=== PATIENT | female | born 1965 | race Caucasian/White ===

== ENCOUNTER 2020-03-24 07:37 | Emergency (ER) | payer BC ==
[~2020-03-24] VITALS: Ht 160 cm; Wt 68.0 kg
[~2020-03-24 07:37] MED LIST: FERRO-TIME325 MG PO; LO-DOSE ASPIRIN81 M1 PO; PRINIVIL5 MG PO
[2020-03-24 08:24] LABS: ABSOLUTE NEUTROPHILS 3.9 thou/uL (1.4-8.2); BASOPHILS 0.5 % (0.0-2.0); EOSINOPHILS 0.3 % (0.0-3.0); HEMATOCRIT 41.9 % (37.0-47.0); HEMOGLOBIN 13.8 gm/dL (12.0-15.0); MCV 87.8 fL (80.0-100.0); PLATELET COUNT 270 thou/uL (150-400); POLYS 60.2 % (36.0-66.0); RBC 4.78 mil/uL (4.20-5.00); RDW 13.5 % (10.5-14.5); WBC 6.5 thou/uL (4.0-11.0)
[2020-03-24 08:26] LABS: ANION GAP 12 mmol/L (7-16); BUN 10 mg/dL (7-18); CALCIUM 9.7 mg/dL (8.5-10.1); CHLORIDE 103 mmol/L (98-107); CO2 25 mmol/L (21-32); CREATININE 0.8 mg/dL (0.6-1.0); GLUCOSE 152 mg/dL (74-106); POTASSIUM 3.9 mmol/L (3.5-5.1); SODIUM 140 mmol/L (136-145)
[2020-03-24 08:35] LABS: TROPONIN-I <0.06 ng/mL (<0.06)
[2020-03-24 09:02] VITALS: BP 119/78
[2020-03-24] MEDS ORDERED: ZOFRAN ODT4 MG PO (09:03)
[2020-03-24] MEDS ORDERED: MOBIC15 MG PO (09:03)
[2020-03-24] MEDS ORDERED: GUAIFEN-CODEINE10 ML PO (09:03)
--- NOTE | 2020-03-24 11:18 | EKG ---
[place] [address] [employer] [facility] [place] [address] ELECTROCARDIOGRAM REPORT Name: ZACH HIGUERA Room #: [facility]#: [id number] Admission: 03/24/20 Attend Phys: Discharge: 03/24/20 Date of : 61 Report #: [id number] [facility] ED Test Date: 2020-03-24 Test Time: 08:30:45 Pat Name: ZACH HIGUERA Department: Room: Gender: F Cork Sorter: : 1965 Requested By: Sheila Israel Order Number: [id number] MD: Talat Felix Measurements Intervals [place] Rate: 100 P: 63 CO: 164 QRS: 55 QRSD: 85 T: 36 QT: 365 QTc: 471 Interpretive Statements Sinus tachycardia Probable left atrial enlargement Baseline wander in lead(s) V6 No previous ECG available for comparison Electronically Signed On 03-24-2020 11:18:12 [employer] by Talat Felix [email or web address] <ELECTRONICALLY SIGNED> By: Talat Felix MD, [facility] 03/24/20 1118 0830 0830 Talat Felix MD, FACC /EPI
== END 2020-03-24 09:19 | disposition home or self-care (01) ==
LOC: ER 07:37
PROVIDERS: Emergency Medicine
DX: U07.1 COVID-19 (principal); I10 Essential (primary) hypertension; Z90.49 Acquired absence of other specified parts of digestive tract; Z79.899 Other long term (current) drug therapy; Z79.82 Long term (current) use of aspirin